=== PATIENT | male | born 1945 | race Caucasian/White ===

== ENCOUNTER 2016-10-08 11:11 | Emergency (ER) | payer MEDICARE, OTHER ==
[~2016-10-08 11:11] MED LIST: ASA5GR PO; ASAB PO; ASABAYER PO; BETAP120 PO; BETAPACE80 PO; CALTRA600D PO; CRESTOR20 MG PO; JANTOVEN3 MG PO; LIPITOR20 PO; LIPOTRIAD1 CAP PO; NITROSTAT0.4 MG SL; OS500+D PO; PRIN10 PO; SORINE80 MG PO; VITAMIN B PO; ZOCOR40 PO
[2016-10-08 11:15] LABS: BASOPHILS 0.2 %; BASOPHILS ABSOLUTE 0.01 10/3/uL (0.0-0.16); EOSINOPHILS 0.8 %; EOSINOPHILS ABSOLUTE 0.05 10/3/uL (0.0-0.53); ER CBC TAT 0 Hrs 05 Mins; HEMATOCRIT 39.1 % (40.0-51.0); HEMOGLOBIN 13.1 g/dL (13.6-17.8); IMMATURE GRANULOCYTES 0.2 %; IMMATURE GRANULOCYTES ABSOLUTE 0.01 10/3/uL (0.0-0.11); LYMPHOCYTES ABSOLUTE 0.81 10/3/uL (0.67-4.30); MANUAL DIFF NO %; MEAN CORPUS HGB CONC 33.5 g/dL (32.0-36.0); MEAN CORPUSCULAR HEMOGLOB 30.7 pg (26.0-34.0); MEAN CORPUSCULAR VOLUME 91.6 fL (80-100); MEAN PLATELET VOLUME 9.2 fL (9.2-13.0); MONOCYTES 5.8 %; MONOCYTES ABSOLUTE 0.36 10/3/uL (0.21-1.20); PLATELET COUNT 204 10/3/uL (150-400); RBC DISTRIBUTION WIDTH 13.7 % (12.0-16.0); RED CELL COUNT 4.27 10/6/uL (4.7-6.1); WHITE BLOOD CELLS 6.2 10/3/uL (4.5-10.5)
[2016-10-08 11:26] LABS: ALLENS TEST Pos; BE (BASE EXCESS) 1.1 MEQ/L (0 +/- 2.5); CARBOXYHEMOGLOBIN 1.1 % (0-3); DEVICE NC; HCO3 (ACTUAL BICARBONATE) 25.8 MEQ/L (23-27); HEMOBLOGIN CONTENT 13.2 G/DL (14-18); INSTRUMENT SERIAL # 8087; METHEMOGLOBIN 0.1 % (0-3); PCO2 (CO2 TENSION) 42 MMHG (35-45); PO2 (O2 TENSION) 92 MMHG (79-93); SAMPLE Arterial; pH 7.41 (7.37-7.43)
[2016-10-08 11:30] LABS: A/G RATIO 0.8 (0.7-1.9); ALBUMIN 3.3 G/DL (3.5-5.0); ALKALINE PHOSPHATASE 110 U/L (45-117); BUN (BLOOD UREA NITROGEN) 19 MG/DL (6-23); CALCIUM, SERUM 9.3 MG/DL (8.5-10.4); CHLORIDE, SERUM 107 MMOL/L (96-112); CO2 (CARBON DIOXIDE) 26 MMOL/L (24-34); CREATININE 0.87 MG/DL (0.70-1.30); GFR AFRICAN AMERICAN 99 ML/MIN (>=60); GFR NON AFRICAN AMERICAN 86 ML/MIN (>=60); GLOBULIN 3.9 G/DL (2.5-4.1); GLUCOSE, SERUM 112 MG/DL (60-99); POTASSIUM, SERUM 4.2 MMOL/L (3.5-5.3); SGOT(AST) 24 U/L (5-40); SGPT(ALT) 26 U/L (5-65); SODIUM, SERUM 142 MMOL/L (135-148); TOTAL BILIRUBIN 0.6 MG/DL (0-1.2); TOTAL PROTEIN 7.2 G/DL (6.0-8.5)
[2016-11-07] MEDS ORDERED: JANTOVEN4 MG PO (13:00)
== END 2016-10-08 14:34 | disposition home or self-care (01) ==
LOC: ER 11:11
PROVIDERS: Emergency Medicine
DX: J18.9 Pneumonia, unspecified organism (principal); I10 Essential (primary) hypertension; I25.2 Old myocardial infarction; I48.91 Unspecified atrial fibrillation; Z79.82 Long term (current) use of aspirin
CPT/HCPCS: 36600; 71010; 80053; 82805; 85025; 87040; 87070; 87205; 93005; 94640; 96365; 96366; 99285; J2930; J3370

== ENCOUNTER 2016-11-11 06:39 | Inpatient (IN) | payer OTHER ==
[2016-11-09 17:56] LABS: BASOPHILS 0.4 %; BASOPHILS ABSOLUTE 0.03 10/3/uL (0.0-0.16); EOSINOPHILS 3.3 %; EOSINOPHILS ABSOLUTE 0.22 10/3/uL (0.0-0.53); HEMOGLOBIN 10.8 g/dL (13.6-17.8); IMMATURE GRANULOCYTES 0.3 %; IMMATURE GRANULOCYTES ABSOLUTE 0.02 10/3/uL (0.0-0.11); LYMPHOCYTES 15.7 %; LYMPHOCYTES ABSOLUTE 1.05 10/3/uL (0.67-4.30); MEAN CORPUS HGB CONC 32.9 g/dL (32.0-36.0); MEAN CORPUSCULAR HEMOGLOB 30.8 pg (26.0-34.0); MEAN CORPUSCULAR VOLUME 93.4 fL (80-100); MEAN PLATELET VOLUME 9.1 fL (9.2-13.0); MONOCYTES 9.1 %; MONOCYTES ABSOLUTE 0.61 10/3/uL (0.21-1.20); NEUTROPHILS 71.2 %; NEUTROPHILS ABSOLUTE 4.76 10/3/uL (2.02-8.40); RBC DISTRIBUTION WIDTH 14.5 % (12.0-16.0); RED CELL COUNT 3.51 10/6/uL (4.7-6.1); WHITE BLOOD CELLS 6.7 10/3/uL (4.5-10.5)
[2016-11-09 18:04] LABS: INTERNATIONAL NORMAL RATI 1.7 UNITS (-)
[2016-11-09 18:08] LABS: PROTIME (NOT ORD) 19.5 SEC (12.0-14.5)
[2016-11-09 18:09] LABS: HEMATOCRIT 32.8 % (40.0-51.0); MANUAL DIFF NO %; PLATELET COUNT 313 10/3/uL (150-400)
[2016-11-09 18:11] LABS: A/G RATIO 0.9 (0.7-1.9); ALBUMIN 3.2 G/DL (3.5-5.0); ALKALINE PHOSPHATASE 119 U/L (45-117); BUN (BLOOD UREA NITROGEN) 22 MG/DL (6-23); CALCIUM, SERUM 9.3 MG/DL (8.5-10.4); CHLORIDE, SERUM 105 MMOL/L (96-112); CO2 (CARBON DIOXIDE) 29 MMOL/L (24-34); CREATININE 0.93 MG/DL (0.70-1.30); GFR AFRICAN AMERICAN 94 ML/MIN (>=60); GFR NON AFRICAN AMERICAN 81 ML/MIN (>=60); GLOBULIN 3.7 G/DL (2.5-4.1); GLUCOSE, SERUM 170 MG/DL (60-99); POTASSIUM, SERUM 4.1 MMOL/L (3.5-5.3); SGOT(AST) 14 U/L (5-40); SGPT(ALT) 17 U/L (5-65); SODIUM, SERUM 142 MMOL/L (135-148); TOTAL BILIRUBIN 0.4 MG/DL (0-1.2); TOTAL PROTEIN 6.9 G/DL (6.0-8.5)
[2016-11-09 18:38] LABS: ASCORBIC ACID (UR NOT ORDER) 40 (NEG); BILIRUBIN, URINE NEGATIVE (NEG); KETONE, URINE NEGATIVE (NEG); LEUKOCYTE ESTERASE(NOT OR TRACE (NEG); WBC (NOT ORDERED) (RFLEX) 9 (0-5)
--- NOTE | ~2016-11-11 | OP ---
Record Of Operation [facility] [address] [place]. [address] NAME: TANISHA MORRIS JR : 41 STATUS : ADM IN PAT#: [id number] AGE: 71 ADM/REG DATE : 11/11/16 MR#: [id number] REPORT SERV DATE: 11/11/16 DICTATED BY: ROD ADAME JR. DATE: 11/11/16 REPORT STATUS : Draft TRANSCRIBED BY: MODL DATE: 11/11/16 DATE OF PROCEDURE: 11/11/2016 PREOPERATIVE DIAGNOSES: Persistent infiltrate bilaterally with primary concentration in right middle lobe, anorexic, history of previous coronary bypass surgery, hypertension, sick sinus syndrome, status post placement of permanent pacemaker. POSTOPERATIVE DIAGNOSES: Persistent infiltrate bilaterally with primary concentration right middle lobe, anorexic, history of previous coronary bypass surgery, hypertension, sick sinus syndrome, status post placement of permanent pacemaker. Pathology and cultures pending. NAME OF OPERATION: Bronchoscopy with bronchioalveolar lavage right lung, right thoracoscopy with wedge excision right middle lobe x1 for diagnosis, wedge excision right lower lobe x1 for diagnosis, intercostal nerve block. SURGEON: Dr. Rod Adame. WHEEL TUNER: Luh Gonzalez. RESIDENT SURGEON: Dr. Jack Dave. ANESTHESIA: General endotracheal. FINDINGS: The patient was noted to have minimal mucous secretions in the lung tissue. He had a previous MRSA culture with persistent infiltrate in the right middle lobe. He had improvement clinically when he had the lavage previously. We re-lavaged the right lung, particularly the right middle lobe, looking for an etiology of his persistent cough and x- ray abnormalities. Upon exploration of his right chest, there was clearly an abnormality in the right middle lobe medially. This area was wedged out. Gross inspection demonstrated a lot of mucin within this area as well as some necrotizing granulomas. There was no evidence of cancer. Cultures were sent. An additional wedge incision was taken down the right lower lobe which was less involved. The remainder of his lung tissue looked fairly normal. This did not look like an interstitial lung disease type pattern. DETAILS OF OPERATION: After adequate general anesthesia, the patient was intubated. Bronchoscopy with bronchoalveolar lavage was performed. His anatomy was normal. The fluid was sent for cultures. A bronchial baldev was then placed. The patient was then positioned in the left lateral decubitus position and the right chest was prepped and draped in a routine sterile fashion. A small incision was made overlying the lower intercostal space. Through this single incision site, the above findings were noted. The tissue from the right middle lobe and right lower lobe were wedged out separately. Multiple firings of DANIA stapler with tissue reinforcement were utilized. An intercostal nerve block was performed. A 28-Luxembourgish chest tube was placed. The lung was reinflated. The trocar sites were closed with running Vicryl sutures. The skin was closed with running monofilament suture. A Dermabond dressing was applied and the procedure was terminated at this point. The patient tolerated the procedure well and taken back to recovery room in stable Record Of Operation [address] [address] NAME: ALEXANDRA,HOMER SOPHIA : 41 STATUS : ADM IN PAT#: [id number] AGE: 71 ADM/REG DATE : 11/11/16 MR#: [id number] REPORT SERV DATE: 11/11/16 DICTATED BY: ROD ADAME JR. DATE: 11/11/16 REPORT STATUS : Draft TRANSCRIBED BY: CALOS DATE: 11/11/16 condition. CANDIDO/CALOS Rod Adame Jr., M.D. / [id number] CC: Kanika English Jr., M.D.
[~2016-11-11 06:39] MED LIST changes: +JANTOVEN4 MG PO
[2016-11-11 07:49] LABS: INTERNATIONAL NORMAL RATI 1.5 UNITS (-); PROTIME (NOT ORD) 17.5 SEC (12.0-14.5)
[2016-11-12 06:24] LABS: BASOPHILS 0.1 %; BASOPHILS ABSOLUTE 0.02 10/3/uL (0.0-0.16); EOSINOPHILS 0.4 %; EOSINOPHILS ABSOLUTE 0.06 10/3/uL (0.0-0.53); HEMATOCRIT 33.8 % (40.0-51.0); HEMOGLOBIN 10.9 g/dL (13.6-17.8); IMMATURE GRANULOCYTES 0.4 %; IMMATURE GRANULOCYTES ABSOLUTE 0.06 10/3/uL (0.0-0.11); LYMPHOCYTES ABSOLUTE 1.06 10/3/uL (0.67-4.30); MEAN CORPUS HGB CONC 32.2 g/dL (32.0-36.0); MEAN CORPUSCULAR HEMOGLOB 30.3 pg (26.0-34.0); MEAN CORPUSCULAR VOLUME 93.9 fL (80-100); MEAN PLATELET VOLUME 9.3 fL (9.2-13.0); MONOCYTES 7.1 %; MONOCYTES ABSOLUTE 1.07 10/3/uL (0.21-1.20); NEUTROPHILS ABSOLUTE 12.85 10/3/uL (2.02-8.40); PLATELET COUNT 300 10/3/uL (150-400); RBC DISTRIBUTION WIDTH 14.1 % (12.0-16.0)
[2016-11-12 06:28] LABS: MANUAL DIFF NO %; WHITE BLOOD CELLS 15.1 10/3/uL (4.5-10.5)
[2016-11-12 06:38] LABS: CALCIUM, SERUM 9.2 MG/DL (8.5-10.4); CHLORIDE, SERUM 104 MMOL/L (96-112); CO2 (CARBON DIOXIDE) 29 MMOL/L (24-34); GFR AFRICAN AMERICAN 103 ML/MIN (>=60); GFR NON AFRICAN AMERICAN 89 ML/MIN (>=60); POTASSIUM, SERUM 3.9 MMOL/L (3.5-5.3); SODIUM, SERUM 140 MMOL/L (135-148)
[2016-11-12 06:42] LABS: BUN (BLOOD UREA NITROGEN) 13 MG/DL (6-23); GLUCOSE, SERUM 90 MG/DL (60-99)
[2016-11-12] MEDS ORDERED: NORCO1 TAB PO (10:22)
== END 2016-11-12 16:40 | disposition home or self-care (01) | DRG 167 ==
LOC: SDC/OF 06:39 → PACU 10:27 → 5NO 12:23
PROVIDERS: Thoracic Surgery (Cardiothoracic Vascular Surgery)
PROC: 0BJ08ZZ Inspection of Tracheobronchial Tree, Via Natural or Artificial Opening Endoscopic (ICD-10-PCS; 2016-11-11)
PROC: 3E0T3BZ Introduction of Anesthetic Agent into Peripheral Nerves and Plexi, Percutaneous Approach (ICD-10-PCS; 2016-11-11)
PROC: 0B938ZX Drainage of Right Main Bronchus, Via Natural or Artificial Opening Endoscopic, Diagnostic (ICD-10-PCS; 2016-11-11)
PROC: 0BBD4ZX Excision of Right Middle Lung Lobe, Percutaneous Endoscopic Approach, Diagnostic (ICD-10-PCS; principal; 2016-11-11 08:15)
PROC: 0BBF4ZX Excision of Right Lower Lung Lobe, Percutaneous Endoscopic Approach, Diagnostic (ICD-10-PCS; 2016-11-11 08:15)
DX: J84.9 Interstitial pulmonary disease, unspecified (principal); Z68.1 Body mass index [BMI] 19.9 or less, adult; I49.5 Sick sinus syndrome; R63.0 Anorexia; Z95.1 Presence of aortocoronary bypass graft; I10 Essential (primary) hypertension; Z95.0 Presence of cardiac pacemaker
CPT/HCPCS: 36415; 71020; 80048; 80053; 81001; 82962; 83036; 85025; 85610; 86850; 86900; 86901; 87015; 87070; 87075; 87077; 87102; 87116; 87186; 87205; 87641; 88307; 88312; 88331; 93005; 94640; A9270-GY; J0690; J2250; J2270; J2370; J2405; J2710; J2795; J3010

== ENCOUNTER 2016-11-23 13:52 | Inpatient (IN) | payer MEDICARE, OTHER ==
--- NOTE | ~2016-11-23 | CN ---
Consultation Report [facility] [address] [place]. [address] NAME: TANISHA FUENTES JR : 41 STATUS : ADM IN [facility]#: [id number] AGE: 71 ADM/REG DATE : 11/23/16 MR#: [id number] REPORT SERV DATE: 12/03/16 DICTATED BY: JASVIR TESFAYE DATE: 12/03/16 REPORT STATUS : Draft TRANSCRIBED BY: MODL DATE: 12/03/16 CONSULTATION DATE OF CONSULTATION: REFERRING PHYSICIAN: Dr. Rivera. REASON FOR CONSULTATION: Asked to assist with any question of hypercoagulable workup. HISTORY: Mr. Fuentes is a very pleasant 71-year-old with multiple medical problems, status post recent lung biopsy complicated by a supratherapeutic INR/infection/hemothorax. The hemothorax was treated with chest tube which was removed two days ago. He has been doing well with this, but began developing swelling of the left arm yesterday. An ultrasound was performed which revealed a new DVT in the left subclavian. He was restarted on IV heparin. He denies any prior clots or strokes. 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 Denies any family history of clots. PAST MEDICAL HISTORY: Significant for paroxysmal AFib, he has had a pacemaker placed. He had a PTCA in 1990 and was told he had one blocked artery. He has had multiple kidney stones. His last episode of kidney stones was three weeks ago. He states he is up to date on his colonoscopy. SOCIAL HISTORY: He is . 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 Denies any tobacco or alcohol. FAMILY HISTORY: He denies any family history of clot or early stroke. REVIEW OF SYSTEMS: A 14-point review of systems was performed and negative except as per HPI. PHYSICAL EXAMINATION: VITAL SIGNS: Temp 97.8, pulse of 55, respiratory rate 18, sat 97% on room air, blood pressure is 122/56. GENERAL: He is a well-developed, well-nourished, thin male, in no acute distress. LUNGS: Clear to auscultation. HEART: Bradycardic without murmur. He has a small ulceration with reddening of the skin. ABDOMEN: Soft, nontender, nondistended. EXTREMITIES: He has no clubbing, cyanosis, or edema. LABORATORY DATA: His blood work reveals white count of 12.2, hemoglobin 8.8, platelet count of 236. His BUN is 25, creatinine 1.28. Most recent INR was 1. ASSESSMENT AND PLAN: The patient with a history of long-term anticoagulation complicated by hemothorax after a biopsy, now with new upper extremity deep venous thrombosis while off his Consultation Report [facility] [address] [place]. [address] NAME: TANISHA FUENTES JR : 43 STATUS : ADM IN [facility]#: [id number] AGE: 71 ADM/REG DATE : 11/23/16 MR#: [id number] REPORT SERV DATE: 12/03/16 DICTATED BY: JASVIR TESFAYE DATE: 12/03/16 REPORT STATUS : Draft TRANSCRIBED BY: CALOS DATE: 12/03/16 anticoagulation. 1. I agree with IV heparin with transition back to Coumadin. I think Coumadin is his best choice as it is reversible if he were to have recurrent bleed and it can be used if he has any difficulty with his kidney function. I will resume back at his home dose of 3.5 mg daily. He has had this monitored at the [place]. 2. Hypercoagulable. I suspect this probably occurred in an acute illness setting. The results of a hypercoagulable workup would not change his need for long-term anticoagulation, but may help better to determine if he needs Lovenox bridge when he comes off his Coumadin for procedures. We will follow up with you as to the results. Thank you very much for the consultation. ZANDER/CALOS Jasvir Tesfaye M.D. / [id number] CC: Dave Viera MD
--- NOTE | ~2016-11-23 | IDS ---
Interim Discharge Summary [facility] [address] [place]. [address] NAME: TANISHA MORRIS JR : 41 STATUS : ADM IN [facility]#: [id number] AGE: 71 ADM/REG DATE : 11/23/16 MR#: [id number] REPORT SERV DATE: 12/05/16 DICTATED BY: YUE RIVERA DATE: 12/05/16 REPORT STATUS : Draft TRANSCRIBED BY: MODL DATE: 12/05/16 ADMISSION DATE: 11/23/2016 DISCHARGE DATE: PROBLEM LIST: 1. Shock with right hemothorax with empyema. 2. Right hemothorax with acute blood loss anemia. 3. Right empyema with MSSA. The patient has been followed by Dr. Lamar. Currently, he is on Ancef treatment. 4. Chronic Coumadin use at home prior to this admission, and came with an INR of 7.6. It was on hold while he was getting the treatment for the right hemothorax, and it was resumed after he was found to have left subclavian DVT. 5. Left subclavian DVT. The patient is back on Coumadin. 6. Chronic bronchiectasis from the biopsy result from the previous admission. 7. New right-sided apical small pneumothorax on the chest x-ray exam on 12/04/2016, the patient needs a followup chest x-ray to make sure that the pneumothorax is resolving before the discharge. CONSULTANTS: 1. Dr. Lamar. 2. Dr. Mars in Critical Care Management. 3. Renal Associate. 4. Dr. Tesfaye, template clerk for clot. HISTORY OF PRESENT ILLNESS: This is a 71-year-old male patient, who had a recent lung biopsy and was discharged. Came back to the hospital with weakness and dizziness, was found to have acute blood loss anemia. Please see the dictated H and P. HOSPITAL COURSE: He was admitted to the hospital initially with the weakness postprocedure, and he was found to be in shock, and he was admitted to the ICU. He was found to be positive with acute blood loss anemia. Had a chest tube insertion which showed bloody effusion. He was on supportive care in the ICU with the transfusion, and he was also having an MSSA infection from the pleural fluid. He was on adequate antibiotic management by Dr. Lamar, and he was tolerating all supportive care with his shock and bleeding. At that time, he presented with a supratherapeutic Coumadin level. Coumadin was on hold on initial admission. After he was treated and stabilized from the ICU Care, he came out of the ICU. He landed on [address]. At that time, his Coumadin was on hold. The new finding was, his left subclavian DVT was diagnosed after he came out of the ICU. Seen by Dr. Isabel Tesfaye regarding his anticoagulation, recommended the Coumadin to be restarted. He has been tolerating all these treatments. He has been stable. Had a followup x-ray which showed right apical pneumothorax, which was found on 12/04/2016. Meanwhile, his disposition is decided to be Interim Discharge Summary [address] [address] NAME: TANISHA MORRIS JR : 41 STATUS : ADM IN [facility]#: [id number] AGE: 71 ADM/REG DATE : 11/23/16 MR#: [id number] REPORT SERV DATE: 12/05/16 DICTATED BY: YUE RIVERA DATE: 12/05/16 REPORT STATUS : Draft TRANSCRIBED BY: CALOS DATE: 12/05/16 refer to [facility]. financial compliance manager is in process for approving his rehab stay. We will keep this patient for followup for apical pneumothorax before the discharge. Overall, he had a stable hospitalization. We will need to check x-ray for pneumothorax and finalizing discharge plan to [facility]. GUERLINE/MODTrinity Yue Rivera M.D. / [id number] CC: Dave Viera MD
--- NOTE | ~2016-11-23 | HP ---
History And Physical [place] [id number] [facility] [place]. [address] NAME: TANISHA MORRIS JR : 43 STATUS : ADM IN [facility]#: [id number] AGE: 71 ADM/REG DATE : 11/23/16 MR#: [id number] REPORT SERV DATE: 11/23/16 DICTATED BY: DARCY PHOENIX DATE: 11/23/16 REPORT STATUS : Draft TRANSCRIBED BY: MODL DATE: 11/23/16 DATE OF ADMISSION: 11/23/2016 IDENTIFYING DATA: A 71-year-old white male whose PCP is Dr. Nitesh Maurer; Pulmonary in [place] with Dr. Ricci; Pulmonary locally Dr. Dodge; Cardiothoracic Surgery, Dr. Adame. CHIEF COMPLAINT: Weakness and dizziness. HISTORY OF PRESENT ILLNESS: This patient's history of present illness is obtained by talking directly with the patient and his at the bedside as well as talking to the ER provider including the nurse and the ER physician and reviewing [employer] and [employer]. The patient has had about two years of cough. He has also had progressive weight loss over the last year of at least 45 pounds. He has had several pneumonias diagnosed and a persistent infiltrate in the mid lung panchal, right worse than left. Because of this, Dr. Adame did bronchoscopy with bronchoalveolar lavage as well as wedge biopsies of right middle lobe and right lower lobe and thoracoscopy on the right side on 11/11/2016. He went home the next day. The pathology showed marked bronchiectasis with some gram-positive cocci. Cultures grew out small amount of methicillin-sensitive Staph aureus and some bacillus species, negative for AFB. There were some rare granuloma and they had fungal hyphae in them, questionable Aspergillus. The patient was on Bactrim at home. Since going home, he has just progressively been feeling weaker and weaker. He feels like he is going to pass out, it is much worse today, so he came to the ER where his supine blood pressure 104/71, but standing or even sitting, he was about to pass out. The chest x-ray on the patient today showed subcutaneous emphysema, a right pleural effusion that had developed a right basilar consolidation. We were asked to see him in admission process. When I walked in the room, he was pale. He was lethargic. He was cold. He said he felt like he was going to pass out. His head was up at about 40 degrees angle. I put it down nearly flat. He stated he felt short of breath. I raised it just slightly and got a blood pressure manually with the nurse in the room of 74/40. We have started IV fluids again. The ER had already given him 2 liters, 1 liter of saline, 1 liter of lactated Ringer's as well as antibiotics. They did Hemoccult his stool, it was yellow in color, but guaiac positive. The patient's states that last week his INR was up to 8. His Jantoven was held. Repeat was down to 6, and then today, it was reportedly back to the normal range, but he had not restarted his Jantoven. He admits he had some dark stool. REVIEW OF SYSTEMS: On review of systems, he has had cough for about two years ago. He has right side postop chest pain, it was not prior to surgery. He has had worsening shortness of breath. He had nausea and threw up once this morning. He states there was no red or black color in it. He has one time per night nocturia and he stated he has lost 45 pounds in the last year. No fever, sore throat, sputum production, abdominal pain, diarrhea, rectal bleeding, dysuria, History And Physical [address] [address] NAME: TANISHA MORRIS JR : 41 STATUS : ADM IN [facility]#: [id number] AGE: 71 ADM/REG DATE : 11/23/16 MR#: [id number] REPORT SERV DATE: 11/23/16 DICTATED BY: DARCY PHOENIX DATE: 11/23/16 REPORT STATUS : Draft TRANSCRIBED BY: MODTrinity DATE: 11/23/16 urinary hesitancy, peripheral edema, rash, or tick bites. ALLERGIES: HE HAS NO KNOWN DRUG ALLERGIES, BUT HE STATES WHEN HE WAS ON ZYVOX, HE ENDED UP WITH KIDNEY STONES. PAST MEDICAL HISTORY: He has had no history of diabetes, asthma, COPD, myocardial infarction, congestive heart failure, stroke, seizure, peptic ulcer or liver disease, chronic kidney disease, thyroid disease, cancer or sleep apnea. He has a history of paroxysmal atrial fibrillation. He has had previous radiofrequency ablation in 2008. He also has a history in February 2016 of a short run of nonsustained ventricular tachycardia. He is on sotalol. He has previous PTCA of the right coronary artery in 1990. He has a history of hypertension. He has a history of a descending aortic dimension of 4.1 cm. He has had kidney stones when he was on Zyvox. HOME MEDICATIONS: Aspirin 81 mg daily; [place]anger 10/325 a half to a whole p.o. b.i.d. p.r.n. pain; nitroglycerin 0.4 mg sublingual p.r.n. chest pain; Betapace 120 mg b.i.d., Bactrim DS, he is supposed to take for 30 days on a b.i.d. basis, started on 11/12/2016; Jantoven, which was 3.5 mg at bedtime, but he has held since last Monday because of his elevated INR. PAST SURGICAL HISTORY: He had the above described bronchoalveolar lavage with bronchoscopy, right middle lobe and right lower lobe wedge resection, kidney stone procedure, and cholecystectomy. SOCIAL HISTORY: He is . 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 He has no tobacco or alcohol intake history. No assistive device used. FAMILY HISTORY: Mother with heart disease. Dad, he does not know the health problems of. Siblings, brother reportedly with heart disease, hypertension, and congestive heart failure. DIAGNOSTIC DATA: Chest x-ray shows considerable subcutaneous air in the right chest. He has a right pleural effusion, has a right basilar infiltrate, has a dual-lead pacemaker in per my interpretation. EKG done today at 1212 hours reveals atrial paced rhythm, some nonspecific T-wave flattening diffusely per my interpretation. Procalcitonin today is 0.07. Sodium 136, potassium 4.6, chloride 104, CO2 is 28, BUN 28, creatinine 1.2, and by comparison, his creatinine was 0.8 on 11/12/2016. Glucose is 118 and [id number] with an albumin of 3.1, so that suggests the possibility that he might have an elevated serum calcium. Rest of his CMP was unremarkable today. His troponin less than 0.02. His white count is 13.5, platelets are 388,000, hemoglobin is 11.0, and by comparison hemoglobin was 10.9 on 11/12/2016. His pro-time 25.7, INR 2.4, and PTT is 37.1. Lactic acid is 2.0. Urinalysis today as a clean catch, specific gravity 1.028, protein 30, trace ketones, otherwise, unremarkable findings. PHYSICAL EXAMINATION: VITAL SIGNS: Temp 98, pulse 95, respirations 18, blood pressure 74/40 initially when I saw him, and O2 saturation 96% on 4 liters. GENERAL: A well-developed male, who appears quite pale and weak. History And Physical [address] [place]. [address] NAME: TANISHA MORRIS JR : 41 STATUS : ADM IN [facility]#: [id number] AGE: 71 ADM/REG DATE : 11/23/16 MR#: [id number] REPORT SERV DATE: 11/23/16 DICTATED BY: DARCY PHOENIX DATE: 11/23/16 REPORT STATUS : Draft TRANSCRIBED BY: CALOS DATE: 11/23/16 HEENT: Head is atraumatic. Pupils are equal, round, and reactive to light. Extraocular motions are intact. No scleral icterus noted. Ear canals and TMs unremarkable. Normal hearing. Nose, noninflamed externally. Septum midline. Nares patent. Mouth is moist. Good gag. No redness of the throat or gums or lips. NECK: Supple. No lymph node or thyroid enlargement. The jugular veins are flat even is supine position. No bruits noted. LUNGS: He has crackles in both bases, most in the right lung base. His chest wall shows considerable subcutaneous air, right chest more than left chest. Normal respiratory effort. HEART: Regular rate and rhythm without murmur, gallop, click, or rub. ABDOMEN: Bowel sounds positive. Soft, nondistended, and nontender. No masses. No organomegaly. EXTREMITIES: Thin, warm, and good pulses. No clubbing. No cyanosis. No edema. No actively inflamed skin or joints. NEUROLOGIC: He is very weak. He is arousable to verbal and tactile stimulation. He is oriented x3. His motor strength is 1/5 in all four extremities. No Babinski. No clonus noted. Stool described by the ER staff is yellow, guaiac positive. ASSESSMENT: 1. Shock, unclear etiology. Possibilities include gastrointestinal bleed with his recent report of dark stool and the ER found guaiac positive and he has had a high INR. Other possibility would be sepsis related to healthcare associated pneumonia. Also have to consider the possibility of this ongoing problem with his right middle lobe and a questionable Aspergillus. Other possibility for his shock would be adrenal insufficiency, this could also play into his weight loss. 2. Acute kidney injury given his sudden rise of creatinine. 3. Bronchiectasis that was quite marked on his recent pathology. 4. Near-syncope due to problem shock. 5. See past medical history. PLAN: 1. The patient is being admitted to the hospital. 2. In the meantime, we have given him IV fluids rapidly. We will check his serum cortisol. If it is low, we will supplement him, blood cultures are growing. He has already got Rocephin and azithromycin. I am going to broaden that to cefepime, vancomycin, and tobramycin. I will ask ID to see him. I have spoken with Critical Care, Dr. Viera, if his pressures do not improve dramatically in the near time, he will go to the ICU. 3. Follow up hemoglobin closely. 4. We are holding his Jantoven. 5. updated at the bedside at this time. RSFara/CALOS History And Physical [address] [address] NAME: TANISHA MORRIS JR : 41 STATUS : ADM IN [facility]#: [id number] AGE: 71 ADM/REG DATE : 11/23/16 MR#: [id number] REPORT SERV DATE: 11/23/16 DICTATED BY: DARCY PHOENIX DATE: 11/23/16 REPORT STATUS : Draft TRANSCRIBED BY: MODL DATE: 11/23/16 Darcy Phoenix M.D. / [id number] CC: MD Nitesh Davidson M.D. James Headrick Jr., M.D. Pamela Sud, M.D.
--- NOTE | ~2016-11-23 | CN ---
Consultation Report [facility] [address] [place]. [address] NAME: TANISHA FUENTES JR : 41 STATUS : ADM IN [facility]#: [id number] AGE: 71 ADM/REG DATE : 11/23/16 MR#: [id number] REPORT SERV DATE: 11/25/16 DICTATED BY: LEE ANN RIOS DATE: 11/25/16 REPORT STATUS : Draft TRANSCRIBED BY: MODL DATE: 11/25/16 NEPHROLOGY CONSULTATION DATE OF CONSULTATION: 11/25/2016 INDICATION FOR CONSULTATION: Acute kidney injury. HISTORY OF PRESENT ILLNESS: Mr. Fuentes is a 71-year-old male, who presented to the hospital due to weakness and near-syncope. He was seen for acute kidney injury and hyperkalemia. History is significant for recent open lung biopsy to evaluate chronic right pulmonary infiltrate, which demonstrated bronchiectasis, grew out MSSA, and pathology revealed fungal hyphae on staining and tissue path reveal granulomas. He was initiated on Bactrim for coverage. He had been on warfarin and apparently the level justin to 7.4. Warfarin was held and the level corrected to 2.4 at the time of admission. His creatinine has increased from 1.2 to 3.35 since admission. His systolic blood pressure was in the 70s on presentation and he received over 4 L of IV fluids and required 2 units of blood as packed red blood cells. His right chest was noted to have an increasing effusion on chest x-ray and CT scan and he underwent chest tube placement with removal of 1600 mL of bloody effusion. Besides the Bactrim, he did receive 1 dose of tobramycin at the time of presentation, but is currently on no nephrotoxic therapy. PAST MEDICAL HISTORY: Nephrolithiasis, bronchiectasis on pulmonary biopsy with rare fungal hyphae, granulomas, and MSSA cultured and on tissues path at time of biopsy, remote cholecystectomy, paroxysmal atrial fibrillation, status post ablation, coronary artery disease, status post PCI, history of hypertension, history of hyperlipidemia. SOCIAL HISTORY: The patient is . 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 No use of tobacco, alcohol, or illicit drugs. PAST SURGICAL HISTORY: Lung biopsy intervention for kidney stones and cholecystectomy. FAMILY HISTORY: Mother with hypertension and heart disease. Brother with hypertension, heart disease, and congestive heart failure. No end-stage renal disease. No diabetes. ALLERGIES: THE PATIENT STATES, HE DEVELOPED KIDNEY STONES ON ZYVOX. MEDICATIONS: At admission, aspirin, hydrocodone, nitroglycerin, Betapace, Bactrim DS, Jantoven. REVIEW OF SYSTEMS: HEENT: Change in visual acuity. No epistaxis. No otic infection. No pharyngitis. PULMONARY: No shortness of breath. No hemoptysis. CARDIAC: Recent weakness, near-syncope. Denies palpitations, chest pain. No recent lower extremity edema. Consultation Report [place] [id number] [facility] [place]. [address] NAME: TANISHA FUENTES JR : 41 STATUS : ADM IN [facility]#: [id number] AGE: 71 ADM/REG DATE : 11/23/16 MR#: [id number] REPORT SERV DATE: 11/25/16 DICTATED BY: LEE ANN RIOS DATE: 11/25/16 REPORT STATUS : Draft TRANSCRIBED BY: CALOS DATE: 11/25/16 GI: Some intermittent nausea. Appetite is decreased. No vomiting. No melena. : No gross hematuria, dysuria. Urine output has dropped since admission. MUSCULOSKELETAL: Denies arthralgias and joint tenderness. DERMIS: No rash. No itching. ENDOCRINE: Negative. The remainder of the 12-point review of systems negative. PHYSICAL EXAMINATION: GENERAL: Pleasant thin white male, alert, cooperative. VITAL SIGNS: Blood pressure 105/55, temp 97.5, pulse 72, respiratory rate 14. HEENT: Eyes, no scleral icterus. Pupils equal, reactive to light. Extraocular movement intact. Nares patent. No discharge. Throat, no injection. Mucous membranes moist. NECK: No thyromegaly, masses, bruits. CHEST/LUNGS: Decreased breath sounds, right base posteriorly. Crackles right greater than left base. No wheezing. CARDIAC: Irregular rhythm. Questionable 1/6 systolic ejection murmur. No gallop or rub. ABDOMEN: Supple. Normoactive bowel sounds. No tenderness. No hepatosplenomegaly. /RECTAL: Not performed. EXTREMITIES: No edema. No calf tenderness. DERMIS: No rash. No skin lesions. NEUROLOGIC: Cranial nerves intact. No lateralizing weakness. MUSCULOSKELETAL: No deformity. No joint tenderness or effusions. IMPRESSION: 1. Acute kidney injury likely secondary to ischemic acute tubular necrosis. Doubt significant contribution by one dose of tobramycin or effects of Bactrim. 2. History of nephrolithiasis. 3. Weight loss attributed to pulmonary infection. 4. Bronchiectasis, on pulmonary biopsy with documentation of granulomas on tissue biopsy, fungal hyphae on stains, and MSSA in cultures at time of bronchial lavage. 5. Remote cholecystectomy. 6. Acute blood loss anemia, status post transfusion. 7. Shock, likely hypovolemic. 8. Status post drainage of right pleural effusion with bloody effluent in association with recent INR elevation. 9. Paroxysmal atrial fibrillation with history of ablation and chronic Coumadin therapy. 10.Coronary artery disease, status post remote PCI. 11.History of hypertension. 12.Hyperlipidemia. PLAN: 1. Labs. 2. Ultrasound of kidney and bladder. 3. Diuretic challenge. Consultation Report [address] [place]. [address] NAME: TANISHA FUENETS JR : 41 STATUS : ADM IN [facility]#: [id number] AGE: 71 ADM/REG DATE : 11/23/16 MR#: [id number] REPORT SERV DATE: 11/25/16 DICTATED BY: LEE ANN RIOS DATE: 11/25/16 REPORT STATUS : Draft TRANSCRIBED BY: CALOS DATE: 11/25/16 4. We will monitor for renal replacement therapy. CG/CALOS Lee Ann Rios M.D. / [id number] CC: MD Nitesh Guerrero M.D.
--- NOTE | ~2016-11-23 | OP ---
Record Of Operation [facility] [address] [place]. [address] NAME: TANISHA MORRIS JR : 41 STATUS : ADM IN [facility]#: [id number] AGE: 71 ADM/REG DATE : 11/23/16 MR#: [id number] REPORT SERV DATE: 11/25/16 DICTATED BY: DIPESH MARS DATE: 11/25/16 REPORT STATUS : Draft TRANSCRIBED BY: MODL DATE: 11/25/16 DATE OF PROCEDURE: 11/25/2016 PROCEDURE: Chest tube insertion, right side. INDICATION FOR PROCEDURE: The patient has acute blood loss anemia, shock, worsening effusion on the right side which is noted sonographically. Concern for a hemothorax. PREOPERATIVE DIAGNOSIS: Hemothorax. POSTOPERATIVE DIAGNOSIS: Hemothorax. PERFORMING OPERATORS: Dipesh Mars MD and rDu Servin PA-C PROCEDURE NOTE: The patient was in the intensive care unit, he was placed in proper position with a wedge. Using ultrasound imaging, we were able to identify the site and marked this properly. We then sterilized the area and prepped him. We then used lidocaine to numb up the insertion site and placed a finder needle with lidocaine. Then, we were able to enter the pleural space with the return of brown old blood. We were able to place a guidewire in that site. Using dilation, using a Thal-Quick setup, we were able to place a 14-Polish chest tube with return of sanguinous pleural fluid which had a hemoglobin of 5.9. Of note, we were able to drain 1.2 L of blood which was collected in the aquarium. The patient had improvement in breathing status, oxygenation status. OUTCOME: Please keep chest tube to -20 suction and check a chest x-ray. HFQ/MODL Dipesh Mars MD / [id number] CC: MD Nitesh Guerrero M.D.
--- NOTE | ~2016-11-23 | DS ---
Discharge Summary [facility] [address] [place]. [address] NAME: TANISHA MORRIS JR : 41 STATUS : DIS IN PAT#: [id number] AGE: 71 ADM/REG DATE : 11/23/16 MR#: [id number] REPORT SERV DATE: 12/07/16 DICTATED BY: JR. HEBERT WILLIAM JOHN DATE: 12/06/16 REPORT STATUS : Draft TRANSCRIBED BY: MODL DATE: 12/06/16 ADMISSION DATE: 11/23/2016 DISCHARGE DATE: 12/06/2016 DISCHARGE DIAGNOSES: Include, 1. Right hemothorax with shock. 2. Acute blood loss anemia secondary to hemothorax. 3. Right methicillin sensitive Staph aureus empyema. 4. Left subclavian deep vein thrombosis. 5. Chronic bronchiectasis. 6. Small right apical pneumothorax which has resolved. OPERATIONS, PROCEDURES, AND TREATMENTS: Include, 1. Chest x-ray on 11/23/2016, which showed status post removal of right chest tube without pneumothorax. There was increased spontaneous emphysema and developed a right pleural effusion, right basilar consolidation. 2. Chest x-ray done 11/24/2016 showed substantially increased volume of right pleural effusion with increased atelectasis of the right lung. 3. CT of the chest done 11/24/2016 which showed large right pleural effusion, possibly representing hemothorax given the patient's clinical presentation. There was densely consolidated right lower lobe which is heterogeneous in appearance. Finding may be due to intrapulmonary hemorrhage, pneumonia, or surrounding hematoma. There was postsurgical changes from previous wedge resection involving the right lower lobe and right middle lobe. There was soft tissue gas throughout the right chest wall extending into the upper abdomen. There was continued extensive tree-in-bud opacities in both lungs likely infectious/inflammatory. There was new discrete nodular opacity in the right central lung measuring 8 x 12 mm and slightly more dense in appearance. There is a discrete nodule in the posterior upper lobe measuring 3 x [address] recommended. 4. Mild edema with peripancreatic fat planes. 5. PICC line placement, done 11/24/2016. 6. Chest x-ray, done 11/25/2016, which showed chest tube with decrease in the amount of pleural effusion residual opacity. 7. Renal ultrasound, done 11/25/2016, was normal. 8. Multiple followup chest x-rays on 12/02/2016, there are bilateral upper lobe infiltrates which had resolved, right lung base atelectasis consolidation was mildly improved. 9. Venous Doppler ultrasound of the left upper extremity, done 12/02/2016, showed deep vein thrombus involving the left subclavian and left axillary vein as well as superficial venous thrombosis involving proximal left basilic and distal left cephalic veins. 10.PA and lateral chest x-ray, done 12/04/2016, which showed small right pleural effusion with tiny right apical pneumothorax. 11.Followup chest x-rays on 12/05/2016 showed decrease in the size of the pneumothorax and on 12/06/2016 showed resolution of the pneumothorax. CONSULTING PHYSICIAN: Include, Dr. Severo Lamar of Infectious Disease, Dr. Jordan Birmingham of Discharge Summary [address] [address] NAME: TANISHA MORRIS JR : 41 STATUS : DIS IN PAT#: [id number] AGE: 71 ADM/REG DATE : 11/23/16 MR#: [id number] REPORT SERV DATE: 12/07/16 DICTATED BY: JR. HEBERT WILLIAM JOHN DATE: 12/06/16 REPORT STATUS : Draft TRANSCRIBED BY: CALOS DATE: 12/06/16 Nephrology, Dr. Mars of Pulmonology, Dr. Isabel Tesfaye of Hematology/Oncology. DISCHARGE MEDICATIONS: Include, 1. Lactulose 30 mL orally twice a day. 2. Milk of magnesia 30 mL orally daily. 3. Protonix 40 mg orally twice a day. 4. Sotalol 120 mg orally twice a day. 5. Coumadin holding on the day of discharge, then resuming likely at 2 mg when INR is again in the therapeutic range. 6. Pulmicort inhaled daily. 7. Tylenol 650 q.4 h. p.r.n. 8. [place] 5/325 one two tablets every six hours as needed. 9. Nitroglycerin as needed. 10.Zofran 4 mg as needed. HOSPITAL COURSE: The patient was a 71-year-old male, presented to the emergency room 11/23/2016 with weakness and dizziness. The patient had had a two-year history of cough with progressive weight loss of at least 45 pounds and pneumonias diagnosed as well as persistent infiltrate of the right lung panchal, right worse than left. Dr. Adame did a bronchoscopy with bronchoalveolar lavage as well as wedge biopsies of the right middle lobe and right lower lobe on 11/11/2016, he went home the next day. Pathology showed bronchiectasia with some mild gram-positive cocci. Cultures grew MSSA. Since going home, the patient has had progressive weakness and came back to the emergency room where he was relatively hypotensive and presyncopal with orthostatic symptoms. His blood pressure was as low as 74/40. On an initial exam, his temperature was 98, heart rate 95, respiratory rate 18, blood pressure 74/40 which improved with fluid hydration. Exam was remarkable for crackles in both lung bases, more on the right than the left. The patient was admitted to [facility] for shock. He was given IV fluid bolus. The patient was subsequently admitted to the intensive care unit for shock and hypotension and was seen by Infectious Disease and found to have a right hemothorax with empyema. The patient was found to be anemic. He was seen by Infectious Disease as well as Nephrology and eventually by Thoracic Surgery and was placed on vancomycin and meropenem. The patient had a chest tube placed by Dr. Adame which was discontinued on 11/28/2016. Chest tube showed bloody effusion with evidence of empyema. Eventually, this was felt to be methicillin sensitive Staph aureus. Infectious Disease changing antibiotic to Kefzol for which the patient will complete his dosing today. His PICC line will be removed in that regard. The patient developed a small pneumothorax which was observed and resolve spontaneously. The patient also had a left subclavian deep vein thrombosis. He will be on Coumadin for this. He was given a single dose of 5 mg of Coumadin. His INR justin from 1.2 to 2.3 with that single dose, he was given 1 mg in addition to that, and by the day of discharge, his INR was 3.1. We would recommend holding his Coumadin today and checking an INR tomorrow. He likely will need somewhere between 2 mg and 3 mg Coumadin chronically. The remainder of the patient's health problems remained stable. He did require 2 units of Discharge Summary [place] [id number] [facility] [place]. [address] NAME: TANISHA MORRIS JR : 41 STATUS : DIS IN PAT#: [id number] AGE: 71 ADM/REG DATE : 11/23/16 MR#: [id number] REPORT SERV DATE: 12/07/16 DICTATED BY: JR. HEBERT WILLIAM JOHN DATE: 12/06/16 REPORT STATUS : Draft TRANSCRIBED BY: CALOS DATE: 12/06/16 packed red blood cells transfusion. The patient be discharged to [facility] today 12/06/2016. For discharge exam and laboratory, please see daily progress note. DIET: Will be regular. ACTIVITY: As tolerated. FOLLOWUP ISSUES: Carefully dosed Coumadin. Again, the patient had an initial INR of 1.2. He was given 5 mg of Coumadin x1. The following day, his INR was 2.3. He got 1 mg of Coumadin that night, and on the day of discharge, his INR was 3.1. Recommend holding Coumadin tonight, 12/06/2016 by drawing an INR on 12/07/2016. This discharge took 40 minutes for the patient encounter, coordination of care, and documentation. WDilshadF/CALOS Jeffry Hebert Jr, MD / [id number] CC: Jeffry Hebert Jr, MD Dennis Thompson, M.D.
--- NOTE | ~2016-11-23 | CN ---
Consultation Report [facility] [address] [place]. [address] NAME: TANISHA MORRIS JR : 41 STATUS : ADM IN [facility]#: [id number] AGE: 71 ADM/REG DATE : 11/23/16 MR#: [id number] REPORT SERV DATE: 11/24/16 DICTATED BY: JENNIFFER LAMAR DATE: 11/24/16 REPORT STATUS : Draft TRANSCRIBED BY: MODL DATE: 11/24/16 INFECTIOUS DISEASE CONSULTATION DATE OF CONSULTATION: 11/24/2016 REASON FOR CONSULTATION: Possible sepsis. HISTORY OF PRESENT ILLNESS: This is a 71-year-old man with a history of bronchiectasis, atrial fibrillation, ventricular tachycardia, coronary artery disease, and hypertension. On 11/11/2016, he was taken to the operating room by Dr. Adame because of a history of persistent infiltrates along with anorexia of unclear etiology. On that day, he underwent bronchoscopy with bronchoalveolar lavage and right thoracoscopic wedge excision of right middle lobe and right lower lobe specimens for diagnosis along with intercostal nerve block. He was discharged the following day. Pathology from this procedure showed marked bronchiectasis with inflammation and rare areas of granulomas. The GMS stains showed some fungal hyphae within the rare granulomata. AFB stains were negative. There was also occasional clusters of gram-positive cocci seen within the ectatic bronchi and operative cultures from lavage and tissue specimens all grew MSSA. Fungal cultures are negative today. The patient developed progressive weakness after going home, at times apparently felt like he is going to pass out. This led him to come to the emergency department at [facility] early yesterday afternoon. He also had some complaints of nausea. Initially, his blood pressure was 104/71, pulse of 94, but his blood pressure dropped down to as low as 89/53. His initial laboratory evaluation showed a hemoglobin of 11, white blood cell count of 13.5, and procalcitonin of 0.07. Of note, on 11/18/2016, his INR had been 7.4 and his Coumadin was held and according to Dr. Phoenix, repeat INR was down to 6. On admission last night in the ER, his INR was 2.4. The patient had a chest x-ray done, which showed a small right pleural effusion and right basilar atelectasis versus small infiltrate. Blood pressure according to Dr. Phoenix's note, it got as low as 74/40. He underwent vigorous fluid resuscitation with about 4 L of fluid with improvement in his blood pressure. He was started on broad-spectrum antibiotics with vancomycin, cefepime, and tobramycin for the possibility of pneumonia after blood cultures were obtained. He was noted to have a heme- positive stool. Followup lab work showed that his hemoglobin dropped to 7.2 and then to 6.8. He has been transfused one unit and is getting a second unit now. His white blood cell count went up to 18.2 thousand this morning. He has had no fevers since admission. His creatinine is up to 1.59. Finally, repeat chest x-ray this morning shows a marked increase in right pleural effusion and possible atelectasis. The patient has not required pressors. His oxygenation has been stable on 2 L. His chief complaint is right-sided chest pain. He does note an occasional cough. Denies any hemoptysis. PAST MEDICAL HISTORY: As outlined above. He also has history of kidney stones which he attributes to Zyvox. The patient also has a pacemaker. ALLERGIES: NO KNOWN DRUG ALLERGIES. Consultation Report [address] [address] NAME: TANISHA MORRIS SOPHIA DODSON : 41 STATUS : ADM IN [facility]#: [id number] AGE: 71 ADM/REG DATE : 11/23/16 MR#: [id number] REPORT SERV DATE: 11/24/16 DICTATED BY: JENNIFFER LAMAR DATE: 11/24/16 REPORT STATUS : Draft TRANSCRIBED BY: CALOS DATE: 11/24/16 PRESENT MEDICATIONS: Include the antibiotics as mentioned along with Betapace. He was on Coumadin as an outpatient as mentioned above along with aspirin, p.r.n. hydrocodone, Bactrim which he had started on 11/12/2016. SOCIAL HISTORY: He lives with his . Nonsmoker. Nondrinker. FAMILY HISTORY: Notable for mother with heart disease. REVIEW OF SYSTEMS: Otherwise negative. He denies any abdominal pain. No vomiting. No diarrhea. No genitourinary symptoms. PHYSICAL EXAMINATION: VITAL SIGNS: The patient weighs 60 kg. He is afebrile. Blood pressure 103/51, pulse 75, respiratory rate 20. GENERAL: He is lying very quietly in bed. He does open his eyes and responds to simple questions, but is somewhat lethargic. He is appropriate though in his answers. HEAD AND NECK: Otherwise, unremarkable. Oral cavity is clear. LUNGS AND CHEST: The patient has subcutaneous emphysema along his right lateral chest wall. The surgical wound has healed well. He has crackles on the right side. Exam made more difficult by the subcutaneous emphysema. The left lung exam shows some scattered rhonchi. CARDIAC: Regular rate and rhythm. Normal S1, S2. No murmur, gallop, or rub. ABDOMEN: Nondistended, soft, and nontender. EXTREMITIES: Show no rash or edema. LABORATORY STUDIES: As outlined above. In addition, his platelet count is normal at 344. Creatinine has gone up to 1.59 this morning. His 11/12/2016 creatinine was 0.80. Liver function tests normal. INR 2.6. Albumin 2.3. Radiographic studies as mentioned above. Microbiologic studies as outlined above. The urinalysis is negative. IMPRESSION: The patient presents with shock on admission with mild leukocytosis and a low procalcitonin and now a marked drop in his hemoglobin and marked worsening of a right pleural effusion. This is following a laparoscopic surgery two weeks ago. Certainly, we have to be concerned about the possibility of pneumonia here and sepsis and possible developing complicated effusion. However, I am not convinced of sepsis given the low procalcitonin, the lack of fever, and the review of his chest x-rays. I think we have to have some concern about the possibility of bleeding into his thoracic cavity and the possibility of reactive leukocytosis. In addition, the patient has been on the Septra which I presume was started when the operative cultures came back with Staph aureus and this would make pneumonia less likely. With regard to the rare granulomas seen on the path report and the fungal hyphae, I believe it is unlikely the patient has an invasive fungal pulmonary infection. I do not believe even if he has early Aspergillus infection of his chronic bronchiectasis situation that it is likely to be playing a role in his acute problem right now. Consultation Report [place] [address] [facility] [address] NAME: TANISHA MORRIS : 41 STATUS : ADM IN [facility]#: [id number] AGE: 71 ADM/REG DATE : 11/23/16 MR#: [id number] REPORT SERV DATE: 11/24/16 DICTATED BY: JENNIFFER LAMAR DATE: 11/24/16 REPORT STATUS : Draft TRANSCRIBED BY: MODTrinity DATE: 11/24/16 PLAN: 1. We will continue vancomycin and cefepime. 2. Discussed with Dr. Mars. We will consider thoracentesis and/or CT scan of the chest. 3. GI is also going to evaluate the patient given the anemia and heme-positive stool. /CALOS Jenniffer Lamar M.D. / [id number] CC: MD Nitesh Guerrero M.D.
[2016-11-23 13:28] LABS: BASOPHILS 0.1 %; BASOPHILS ABSOLUTE 0.02 10/3/uL (0.0-0.16); EOSINOPHILS 1.7 %; EOSINOPHILS ABSOLUTE 0.23 10/3/uL (0.0-0.53); ER CBC TAT 0 Hrs 05 Mins; HEMATOCRIT 33.9 % (40.0-51.0); IMMATURE GRANULOCYTES 0.2 %; IMMATURE GRANULOCYTES ABSOLUTE 0.03 10/3/uL (0.0-0.11); LYMPHOCYTES 8.4 %; LYMPHOCYTES ABSOLUTE 1.13 10/3/uL (0.67-4.30); MEAN CORPUS HGB CONC 32.4 g/dL (32.0-36.0); MEAN CORPUSCULAR HEMOGLOB 30.1 pg (26.0-34.0); MEAN CORPUSCULAR VOLUME 92.9 fL (80-100); MEAN PLATELET VOLUME 9.3 fL (9.2-13.0); MONOCYTES ABSOLUTE 0.68 10/3/uL (0.21-1.20); NEUTROPHILS 84.6 %; NEUTROPHILS ABSOLUTE 11.38 10/3/uL (2.02-8.40); PLATELET COUNT 388 10/3/uL (150-400); RBC DISTRIBUTION WIDTH 14.2 % (12.0-16.0); RED CELL COUNT 3.65 10/6/uL (4.7-6.1); WHITE BLOOD CELLS 13.5 10/3/uL (4.5-10.5)
[2016-11-23 13:30] LABS: MANUAL DIFF NO %
[2016-11-23 13:35] LABS: INTERNATIONAL NORMAL RATI 2.4 UNITS (-); PARTIAL THROMBO TIME 37.1 SEC (22.5-37.2)
[2016-11-23 13:40] LABS: PROTIME (NOT ORD) 25.7 SEC (12.0-14.5)
[2016-11-23 13:46] LABS: A/G RATIO 0.8 (0.7-1.9); ALBUMIN 3.1 G/DL (3.5-5.0); CHLORIDE, SERUM 104 MMOL/L (96-112); CO2 (CARBON DIOXIDE) 28 MMOL/L (24-34); GFR AFRICAN AMERICAN 69 ML/MIN (>=60); GFR NON AFRICAN AMERICAN 60 ML/MIN (>=60); GLOBULIN 3.8 G/DL (2.5-4.1); POTASSIUM, SERUM 4.6 MMOL/L (3.5-5.3); SGOT(AST) 13 U/L (5-40); SGPT(ALT) 17 U/L (5-65); SODIUM, SERUM 138 MMOL/L (135-148); TOTAL BILIRUBIN 0.6 MG/DL (0-1.2); TOTAL PROTEIN 6.9 G/DL (6.0-8.5); TROPONIN I <0.02 NG/ML (<0.05)
[2016-11-23 13:49] LABS: ALKALINE PHOSPHATASE 97 U/L (45-117); BUN (BLOOD UREA NITROGEN) 28 MG/DL (6-23); GLUCOSE, SERUM 118 MG/DL (60-99)
[~2016-11-23 13:52] MED LIST changes: +NORCO1 TAB PO
[2016-11-23] MEDS ORDERED: JANTOVEN1 MG PO (14:01)
[2016-11-23] MEDS ORDERED: ASAB PO (14:01)
[2016-11-23] MEDS ORDERED: NORCO1 TAB PO (14:02)
[2016-11-23] MEDS ORDERED: NITROSTAT0.4 MG SL (14:02)
[2016-11-23] MEDS ORDERED: BETAP120 PO (14:03)
[2016-11-23] MEDS ORDERED: BACDS PO (14:04)
[2016-11-23 14:57] LABS: PROCALCITONIN 0.07 ng/mL (<0.5)
[2016-11-23 15:28] LABS: ASCORBIC ACID (UR NOT ORDER) 40 (NEG); BILIRUBIN, URINE NEGATIVE (NEG); KETONE, URINE TRACE MG/DL (NEG); LEUKOCYTE ESTERASE(NOT OR NEG (NEG); NITRITE (URINE) NEG (NEG); WBC (NOT ORDERED) (RFLEX) 3 (0-5)
[2016-11-23 23:01] LABS: HEMATOCRIT 21.4 % (40.0-51.0); HEMOGLOBIN 7.2 g/dL (13.6-17.8)
[2016-11-24 05:50] LABS: INTERNATIONAL NORMAL RATI 2.6 UNITS (-); PROTIME (NOT ORD) 27.8 SEC (12.0-14.5)
[2016-11-24 05:52] LABS: BASOPHILS 0.1 %; BASOPHILS ABSOLUTE 0.02 10/3/uL (0.0-0.16); EOSINOPHILS 0.1 %; EOSINOPHILS ABSOLUTE 0.02 10/3/uL (0.0-0.53); IMMATURE GRANULOCYTES 0.7 %; IMMATURE GRANULOCYTES ABSOLUTE 0.12 10/3/uL (0.0-0.11); LYMPHOCYTES 9.5 %; LYMPHOCYTES ABSOLUTE 1.73 10/3/uL (0.67-4.30); MEAN CORPUS HGB CONC 32.4 g/dL (32.0-36.0); MEAN CORPUSCULAR HEMOGLOB 30.2 pg (26.0-34.0); MEAN CORPUSCULAR VOLUME 93.3 fL (80-100); MEAN PLATELET VOLUME 9.3 fL (9.2-13.0); MONOCYTES 5.5 %; NEUTROPHILS 84.1 %; NEUTROPHILS ABSOLUTE 15.33 10/3/uL (2.02-8.40); PLATELET COUNT 344 10/3/uL (150-400); RBC DISTRIBUTION WIDTH 14.6 % (12.0-16.0); WHITE BLOOD CELLS 18.2 10/3/uL (4.5-10.5)
[2016-11-24 05:53] LABS: HEMOGLOBIN 6.8 g/dL (13.6-17.8); RED CELL COUNT 2.25 10/6/uL (4.7-6.1)
[2016-11-24 05:54] LABS: MANUAL DIFF NO %
[2016-11-24 05:56] LABS: CALCIUM, SERUM 9.6 MG/DL (8.5-10.4); CHLORIDE, SERUM 105 MMOL/L (96-112); CREATININE 1.59 MG/DL (0.70-1.30); GFR AFRICAN AMERICAN 49 ML/MIN (>=60); GFR NON AFRICAN AMERICAN 42 ML/MIN (>=60); PHOSPHORUS, SERUM 4.8 MG/DL (2.5-4.5); POTASSIUM, SERUM 5.5 MMOL/L (3.5-5.3); SODIUM, SERUM 137 MMOL/L (135-148)
[2016-11-24 05:58] LABS: ALBUMIN 2.3 G/DL (3.5-5.0); BUN (BLOOD UREA NITROGEN) 32 MG/DL (6-23); CO2 (CARBON DIOXIDE) 21 MMOL/L (24-34); GLUCOSE, SERUM 164 MG/DL (60-99)
[2016-11-24 08:39] LABS: TOBRAMYCIN, RANDOM 4.6 MCG/ML (5.0-12.0)
[2016-11-24 18:00] LABS: HEMATOCRIT 25.7 % (40.0-51.0); HEMOGLOBIN 8.7 g/dL (13.6-17.8)
[2016-11-24 18:08] LABS: INTERNATIONAL NORMAL RATI 2.5 UNITS (-); PROTIME (NOT ORD) 26.6 SEC (12.0-14.5)
[2016-11-24 18:13] LABS: CALCIUM, SERUM 8.8 MG/DL (8.5-10.4); CHLORIDE, SERUM 105 MMOL/L (96-112); CO2 (CARBON DIOXIDE) 25 MMOL/L (24-34); GFR AFRICAN AMERICAN 25 ML/MIN (>=60); GFR NON AFRICAN AMERICAN 21 ML/MIN (>=60); GLUCOSE, SERUM 169 MG/DL (60-99); POTASSIUM, SERUM 5.4 MMOL/L (3.5-5.3); SODIUM, SERUM 140 MMOL/L (135-148)
[2016-11-24 18:14] LABS: BUN (BLOOD UREA NITROGEN) 45 MG/DL (6-23)
[2016-11-25 04:02] LABS: HEMATOCRIT 23.3 % (40.0-51.0); HEMOGLOBIN 8.2 g/dL (13.6-17.8); MEAN CORPUS HGB CONC 35.2 g/dL (32.0-36.0); MEAN CORPUSCULAR HEMOGLOB 30.5 pg (26.0-34.0); MEAN CORPUSCULAR VOLUME 86.6 fL (80-100); MEAN PLATELET VOLUME 9.8 fL (9.2-13.0); PLATELET COUNT 265 10/3/uL (150-400); RBC DISTRIBUTION WIDTH 15.7 % (12.0-16.0); RED CELL COUNT 2.69 10/6/uL (4.7-6.1); WHITE BLOOD CELLS 25.7 10/3/uL (4.5-10.5)
[2016-11-25 04:03] LABS: MANUAL DIFF YES %
[2016-11-25 04:11] LABS: INTERNATIONAL NORMAL RATI 1.6 UNITS (-)
[2016-11-25 04:12] LABS: PARTIAL THROMBO TIME 33.4 SEC (22.5-37.2)
[2016-11-25 04:14] LABS: ALBUMIN 2.4 G/DL (3.5-5.0); CALCIUM, SERUM 8.5 MG/DL (8.5-10.4); CHLORIDE, SERUM 107 MMOL/L (96-112); CO2 (CARBON DIOXIDE) 23 MMOL/L (24-34); GLUCOSE, SERUM 142 MG/DL (60-99); PHOSPHORUS, SERUM 5.6 MG/DL (2.5-4.5); POTASSIUM, SERUM 5.7 MMOL/L (3.5-5.3); PROTIME (NOT ORD) 18.7 SEC (12.0-14.5); SGOT(AST) 852 U/L (5-40); SGPT(ALT) 786 U/L (5-65); SODIUM, SERUM 139 MMOL/L (135-148); TOTAL BILIRUBIN 0.7 MG/DL (0-1.2)
[2016-11-25 04:25] LABS: BAND NEUTROPHILS 1 %; LYMPHOCYTES 7 %; MONOCYTES 3 %; MONOCYTES ABSOLUTE (CALC) 0.77 10/3/uL (0.21-1.20); NEUTROPHILS ABSOLUTE (CALC) 23.13 10/3/uL (2.02-8.40); PLATELET ESTIMATE ADQ (ADEQUATE); RBC MORPHOLOGY NORM (NORMAL); SEGMENTED NEUTROPHIL (0) 89 %; TOTAL NUCLEATED CELLS 100
[2016-11-25 04:26] LABS: A/G RATIO 0.9 (0.7-1.9); ALKALINE PHOSPHATASE 72 U/L (45-117); BUN (BLOOD UREA NITROGEN) 58 MG/DL (6-23); CREATININE 3.35 MG/DL (0.70-1.30); GFR AFRICAN AMERICAN 20 ML/MIN (>=60); GFR NON AFRICAN AMERICAN 17 ML/MIN (>=60); GLOBULIN 2.8 G/DL (2.5-4.1); TOTAL PROTEIN 5.2 G/DL (6.0-8.5)
[2016-11-25 10:17] LABS: BE (BASE EXCESS) -11.1 MEQ/L (0 +/- 2.5); CARBOXYHEMOGLOBIN 0.2 % (0-3); DEVICE NC; HCO3 (ACTUAL BICARBONATE) 16.2 MEQ/L (23-27); HEMOBLOGIN CONTENT 5.9 G/DL (14-18); INSTRUMENT SERIAL # 35151; METHEMOGLOBIN 1.1 % (0-3); O2 CONTENT 8.4 VOL% (18-24); OPERATOR ID 32199; PCO2 (CO2 TENSION) 44 MMHG (35-45); PO2 (O2 TENSION) 140 MMHG (79-93); SAMPLE Arterial; pH 7.18 (7.37-7.43)
[2016-11-25 10:31] LABS: BODY FLUID RBC (NOT ORD) 595312 /MM3
[2016-11-25 10:32] LABS: GLUCOSE BODY FL (NOT ORD) 85 MG/DL; LDH BODY FLUID (NOT ORD) 173 U/L
[2016-11-25 10:56] LABS: BD FL LYMPH (NOT ORD) 1 %; BD FL SOURCE (NOT ORD) RT PLEURAL; BF BASO (NOT OF) 0 %; BF LARGE MONONUCLEAR 34 %; BODY FLUID EOS (NOT ORD) 0 %; BODY FLUID SEG (NOT ORD) 65 %
[2016-11-25 11:09] LABS: BF TOTAL CELL CT (NOT ORD 3981 /MM3
[2016-11-25 15:41] LABS: CREATININE (RANDOM URINE) 77.4 MG/DL; CREATININE, URINE 77.4 MG/DL; MICROALBUMIN, RANDOM URINE 3.5 MG/DL
[2016-11-25 17:55] LABS: ALBUMIN 2.8 G/DL (3.5-5.0); BUN (BLOOD UREA NITROGEN) 64 MG/DL (6-23); CALCIUM, SERUM 8.9 MG/DL (8.5-10.4); CHLORIDE, SERUM 107 MMOL/L (96-112); CO2 (CARBON DIOXIDE) 23 MMOL/L (24-34); CREATININE 3.35 MG/DL (0.70-1.30); GFR AFRICAN AMERICAN 20 ML/MIN (>=60); GFR NON AFRICAN AMERICAN 17 ML/MIN (>=60); GLUCOSE, SERUM 102 MG/DL (60-99); PHOSPHORUS, SERUM 4.5 MG/DL (2.5-4.5); POTASSIUM, SERUM 5.1 MMOL/L (3.5-5.3); SODIUM, SERUM 140 MMOL/L (135-148)
[2016-11-25 22:14] LABS: INSTRUMENT SERIAL # 35151; OPERATOR ID 13861; SAMPLE PLR; pH 7.06 (7.37-7.43)
[2016-11-26 03:30] LABS: HEMATOCRIT 23.3 % (40.0-51.0); MEAN CORPUS HGB CONC 34.3 g/dL (32.0-36.0); MEAN CORPUSCULAR HEMOGLOB 30.3 pg (26.0-34.0); MEAN CORPUSCULAR VOLUME 88.3 fL (80-100); MEAN PLATELET VOLUME 9.5 fL (9.2-13.0); PLATELET COUNT 249 10/3/uL (150-400); RBC DISTRIBUTION WIDTH 15.5 % (12.0-16.0); RED CELL COUNT 2.64 10/6/uL (4.7-6.1)
[2016-11-26 03:31] LABS: WHITE BLOOD CELLS 28.2 10/3/uL (4.5-10.5)
[2016-11-26 03:32] LABS: MANUAL DIFF YES %
[2016-11-26 03:49] LABS: CALCIUM, SERUM 9.4 MG/DL (8.5-10.4); CHLORIDE, SERUM 102 MMOL/L (96-112); CREATININE 3.45 MG/DL (0.70-1.30); GFR AFRICAN AMERICAN 19 ML/MIN (>=60); GFR NON AFRICAN AMERICAN 17 ML/MIN (>=60); GLUCOSE, SERUM 99 MG/DL (60-99); PHOSPHORUS, SERUM 4.4 MG/DL (2.5-4.5); POTASSIUM, SERUM 4.2 MMOL/L (3.5-5.3); SODIUM, SERUM 141 MMOL/L (135-148)
[2016-11-26 03:50] LABS: BUN (BLOOD UREA NITROGEN) 68 MG/DL (6-23); CO2 (CARBON DIOXIDE) 30 MMOL/L (24-34)
[2016-11-26 03:57] LABS: EOSINOPHILS 1 %; EOSINOPHILS ABSOLUTE (CALC) 0.28 10/3/uL (0.0-0.53); LYMPHOCYTES 2 %; LYMPHOCYTES ABSOLUTE (CALC) 0.56 10/3/uL (0.67-4.30); MONOCYTES 2 %; MONOCYTES ABSOLUTE (CALC) 0.56 10/3/uL (0.21-1.20); NEUTROPHILS ABSOLUTE (CALC) 26.79 10/3/uL (2.02-8.40); SEGMENTED NEUTROPHIL (0) 95 %; TOTAL NUCLEATED CELLS 100
[2016-11-26 03:58] LABS: PLATELET ESTIMATE ADQ (ADEQUATE); RBC MORPHOLOGY NORM (NORMAL)
[2016-11-26 11:19] LABS: ALBUMIN 3.1 G/DL (3.5-5.0); DIRECT BILIRUBIN 0.2 MG/DL (0.0-0.4); INDIRECT BILIRUBIN(NOT ORDER) 0.4 MG/DL (0.1-0.9); TOTAL BILIRUBIN 0.6 MG/DL (0-1.2); TOTAL PROTEIN 6.2 G/DL (6.0-8.5)
[2016-11-27 03:47] LABS: BASOPHILS 0 %; BASOPHILS ABSOLUTE 0.01 10/3/uL (0.0-0.16); EOSINOPHILS 0.4 %; EOSINOPHILS ABSOLUTE 0.09 10/3/uL (0.0-0.53); HEMATOCRIT 22.7 % (40.0-51.0); HEMOGLOBIN 7.6 g/dL (13.6-17.8); IMMATURE GRANULOCYTES 0.3 %; IMMATURE GRANULOCYTES ABSOLUTE 0.07 10/3/uL (0.0-0.11); LYMPHOCYTES 4.1 %; LYMPHOCYTES ABSOLUTE 0.91 10/3/uL (0.67-4.30); MEAN CORPUS HGB CONC 33.5 g/dL (32.0-36.0); MEAN CORPUSCULAR HEMOGLOB 30.4 pg (26.0-34.0); MEAN CORPUSCULAR VOLUME 90.8 fL (80-100); MEAN PLATELET VOLUME 9.5 fL (9.2-13.0); MONOCYTES 5.6 %; MONOCYTES ABSOLUTE 1.25 10/3/uL (0.21-1.20); NEUTROPHILS 89.6 %; NEUTROPHILS ABSOLUTE 19.81 10/3/uL (2.02-8.40); PLATELET COUNT 250 10/3/uL (150-400); RBC DISTRIBUTION WIDTH 15.1 % (12.0-16.0); WHITE BLOOD CELLS 22.1 10/3/uL (4.5-10.5)
[2016-11-27 03:50] LABS: MANUAL DIFF NO %
[2016-11-27 04:05] LABS: CALCIUM, SERUM 9.5 MG/DL (8.5-10.4); CHLORIDE, SERUM 100 MMOL/L (96-112); CO2 (CARBON DIOXIDE) 33 MMOL/L (24-34); CREATININE 3.66 MG/DL (0.70-1.30); GFR AFRICAN AMERICAN 18 ML/MIN (>=60); GFR NON AFRICAN AMERICAN 15 ML/MIN (>=60); GLUCOSE, SERUM 99 MG/DL (60-99); PHOSPHORUS, SERUM 4.9 MG/DL (2.5-4.5); POTASSIUM, SERUM 3.5 MMOL/L (3.5-5.3); SODIUM, SERUM 141 MMOL/L (135-148); VANCOMYCIN TROUGH 14.6 MCG/ML (10.0-20.0)
[2016-11-27 04:07] LABS: BUN (BLOOD UREA NITROGEN) 76 MG/DL (6-23)
[2016-11-28 04:32] LABS: ALKALINE PHOSPHATASE 73 U/L (45-117); DIRECT BILIRUBIN 0.2 MG/DL (0.0-0.4); INDIRECT BILIRUBIN(NOT ORDER) 0.5 MG/DL (0.1-0.9); SGOT(AST) 66 U/L (5-40); SGPT(ALT) 303 U/L (5-65); TOTAL BILIRUBIN 0.7 MG/DL (0-1.2); TOTAL PROTEIN 6.4 G/DL (6.0-8.5)
[2016-11-28 05:31] LABS: BUN (BLOOD UREA NITROGEN) 78 MG/DL (6-23); CALCIUM, SERUM 9.8 MG/DL (8.5-10.4); CHLORIDE, SERUM 103 MMOL/L (96-112); CO2 (CARBON DIOXIDE) 35 MMOL/L (24-34); GFR AFRICAN AMERICAN 25 ML/MIN (>=60); GFR NON AFRICAN AMERICAN 22 ML/MIN (>=60); GLUCOSE, SERUM 103 MG/DL (60-99); PHOSPHORUS, SERUM 4.1 MG/DL (2.5-4.5); POTASSIUM, SERUM 3.6 MMOL/L (3.5-5.3); SODIUM, SERUM 145 MMOL/L (135-148)
[2016-11-28 05:32] LABS: CREATININE 2.79 MG/DL (0.70-1.30)
[2016-11-28 08:31] LABS: BASOPHILS 0.2 %; BASOPHILS ABSOLUTE 0.03 10/3/uL (0.0-0.16); EOSINOPHILS 1.2 %; EOSINOPHILS ABSOLUTE 0.23 10/3/uL (0.0-0.53); HEMATOCRIT 24.7 % (40.0-51.0); HEMOGLOBIN 7.7 g/dL (13.6-17.8); IMMATURE GRANULOCYTES 0.4 %; IMMATURE GRANULOCYTES ABSOLUTE 0.07 10/3/uL (0.0-0.11); LYMPHOCYTES 4.1 %; LYMPHOCYTES ABSOLUTE 0.78 10/3/uL (0.67-4.30); MEAN CORPUSCULAR HEMOGLOB 29.6 pg (26.0-34.0); MEAN PLATELET VOLUME 9.4 fL (9.2-13.0); MONOCYTES 7.5 %; MONOCYTES ABSOLUTE 1.41 10/3/uL (0.21-1.20); NEUTROPHILS 86.6 %; NEUTROPHILS ABSOLUTE 16.39 10/3/uL (2.02-8.40); PLATELET COUNT 289 10/3/uL (150-400); RBC DISTRIBUTION WIDTH 15.5 % (12.0-16.0); WHITE BLOOD CELLS 18.9 10/3/uL (4.5-10.5)
[2016-11-28 08:32] LABS: MANUAL DIFF NO %; MEAN CORPUS HGB CONC 31.2 g/dL (32.0-36.0)
[2016-11-29 05:27] LABS: CALCIUM, SERUM 9.7 MG/DL (8.5-10.4); CHLORIDE, SERUM 109 MMOL/L (96-112); CO2 (CARBON DIOXIDE) 33 MMOL/L (24-34); GLUCOSE, SERUM 107 MG/DL (60-99); POTASSIUM, SERUM 3.8 MMOL/L (3.5-5.3); SODIUM, SERUM 149 MMOL/L (135-148); VANCOMYCIN TROUGH 10.5 MCG/ML (10.0-20.0)
[2016-11-29 05:29] LABS: BUN (BLOOD UREA NITROGEN) 60 MG/DL (6-23); CREATININE 1.71 MG/DL (0.70-1.30); GFR AFRICAN AMERICAN 45 ML/MIN (>=60); GFR NON AFRICAN AMERICAN 39 ML/MIN (>=60); PHOSPHORUS, SERUM 2.3 MG/DL (2.5-4.5)
[2016-11-30 04:16] LABS: BASOPHILS 0.2 %; BASOPHILS ABSOLUTE 0.02 10/3/uL (0.0-0.16); EOSINOPHILS ABSOLUTE 0.69 10/3/uL (0.0-0.53); HEMATOCRIT 24.3 % (40.0-51.0); HEMOGLOBIN 7.6 g/dL (13.6-17.8); IMMATURE GRANULOCYTES 0.4 %; IMMATURE GRANULOCYTES ABSOLUTE 0.05 10/3/uL (0.0-0.11); LYMPHOCYTES 9.6 %; MEAN CORPUS HGB CONC 31.3 g/dL (32.0-36.0); MEAN CORPUSCULAR HEMOGLOB 29.8 pg (26.0-34.0); MEAN CORPUSCULAR VOLUME 95.3 fL (80-100); MEAN PLATELET VOLUME 9.5 fL (9.2-13.0); MONOCYTES 8.9 %; MONOCYTES ABSOLUTE 1.02 10/3/uL (0.21-1.20); NEUTROPHILS 74.9 %; NEUTROPHILS ABSOLUTE 8.54 10/3/uL (2.02-8.40); PLATELET COUNT 277 10/3/uL (150-400); RBC DISTRIBUTION WIDTH 15.7 % (12.0-16.0); RED CELL COUNT 2.55 10/6/uL (4.7-6.1); WHITE BLOOD CELLS 11.4 10/3/uL (4.5-10.5)
[2016-11-30 04:20] LABS: MANUAL DIFF NO %
[2016-11-30 04:30] LABS: CALCIUM, SERUM 9.5 MG/DL (8.5-10.4); CHLORIDE, SERUM 108 MMOL/L (96-112); CO2 (CARBON DIOXIDE) 32 MMOL/L (24-34); GFR AFRICAN AMERICAN 53 ML/MIN (>=60); GFR NON AFRICAN AMERICAN 46 ML/MIN (>=60); SODIUM, SERUM 148 MMOL/L (135-148)
[2016-11-30 04:32] LABS: BUN (BLOOD UREA NITROGEN) 44 MG/DL (6-23); GLUCOSE, SERUM 133 MG/DL (60-99)
[2016-12-02 05:33] LABS: BASOPHILS 0.2 %; BASOPHILS ABSOLUTE 0.03 10/3/uL (0.0-0.16); EOSINOPHILS 13.3 %; EOSINOPHILS ABSOLUTE 1.62 10/3/uL (0.0-0.53); HEMATOCRIT 26.7 % (40.0-51.0); HEMOGLOBIN 8.8 g/dL (13.6-17.8); IMMATURE GRANULOCYTES 0.4 %; IMMATURE GRANULOCYTES ABSOLUTE 0.05 10/3/uL (0.0-0.11); LYMPHOCYTES 10.4 %; LYMPHOCYTES ABSOLUTE 1.27 10/3/uL (0.67-4.30); MEAN CORPUSCULAR HEMOGLOB 30.1 pg (26.0-34.0); MEAN PLATELET VOLUME 9.6 fL (9.2-13.0); MONOCYTES 7.5 %; MONOCYTES ABSOLUTE 0.91 10/3/uL (0.21-1.20); NEUTROPHILS 68.2 %; NEUTROPHILS ABSOLUTE 8.31 10/3/uL (2.02-8.40); PLATELET COUNT 236 10/3/uL (150-400); RBC DISTRIBUTION WIDTH 15.9 % (12.0-16.0); RED CELL COUNT 2.92 10/6/uL (4.7-6.1); WHITE BLOOD CELLS 12.2 10/3/uL (4.5-10.5)
[2016-12-02 05:37] LABS: MANUAL DIFF NO %; MEAN CORPUSCULAR VOLUME 91.4 fL (80-100)
[2016-12-02 05:39] LABS: CALCIUM, SERUM 9.6 MG/DL (8.5-10.4); CHLORIDE, SERUM 105 MMOL/L (96-112); CO2 (CARBON DIOXIDE) 30 MMOL/L (24-34); CREATININE 1.38 MG/DL (0.70-1.30); GFR AFRICAN AMERICAN 58 ML/MIN (>=60); GFR NON AFRICAN AMERICAN 50 ML/MIN (>=60); GLUCOSE, SERUM 143 MG/DL (60-99); POTASSIUM, SERUM 4.6 MMOL/L (3.5-5.3)
[2016-12-02 05:53] LABS: BUN (BLOOD UREA NITROGEN) 28 MG/DL (6-23); SODIUM, SERUM 139 MMOL/L (135-148)
[2016-12-02 17:35] LABS: PARTIAL THROMBO TIME 29.8 SEC (22.5-37.2)
[2016-12-03 06:54] LABS: BUN (BLOOD UREA NITROGEN) 25 MG/DL (6-23); CALCIUM, SERUM 9.6 MG/DL (8.5-10.4); CHLORIDE, SERUM 103 MMOL/L (96-112); CO2 (CARBON DIOXIDE) 30 MMOL/L (24-34); CREATININE 1.28 MG/DL (0.70-1.30); GFR AFRICAN AMERICAN 64 ML/MIN (>=60); GFR NON AFRICAN AMERICAN 55 ML/MIN (>=60); GLUCOSE, SERUM 115 MG/DL (60-99); POTASSIUM, SERUM 4.7 MMOL/L (3.5-5.3); SODIUM, SERUM 138 MMOL/L (135-148)
[2016-12-04 06:34] LABS: BASOPHILS 0.2 %; BASOPHILS ABSOLUTE 0.02 10/3/uL (0.0-0.16); EOSINOPHILS 8.5 %; EOSINOPHILS ABSOLUTE 0.88 10/3/uL (0.0-0.53); HEMATOCRIT 26.2 % (40.0-51.0); HEMOGLOBIN 8.5 g/dL (13.6-17.8); IMMATURE GRANULOCYTES 0.4 %; IMMATURE GRANULOCYTES ABSOLUTE 0.04 10/3/uL (0.0-0.11); LYMPHOCYTES ABSOLUTE 1.13 10/3/uL (0.67-4.30); MEAN CORPUS HGB CONC 32.4 g/dL (32.0-36.0); MEAN CORPUSCULAR HEMOGLOB 29.8 pg (26.0-34.0); MEAN CORPUSCULAR VOLUME 91.9 fL (80-100); MEAN PLATELET VOLUME 9.7 fL (9.2-13.0); MONOCYTES 8.4 %; MONOCYTES ABSOLUTE 0.87 10/3/uL (0.21-1.20); NEUTROPHILS 71.5 %; NEUTROPHILS ABSOLUTE 7.37 10/3/uL (2.02-8.40); PLATELET COUNT 252 10/3/uL (150-400); RBC DISTRIBUTION WIDTH 15.6 % (12.0-16.0); RED CELL COUNT 2.85 10/6/uL (4.7-6.1); WHITE BLOOD CELLS 10.3 10/3/uL (4.5-10.5)
[2016-12-04 06:36] LABS: MANUAL DIFF NO %
[2016-12-04 06:40] LABS: INTERNATIONAL NORMAL RATI 1.1 UNITS (-)
[2016-12-04 06:41] LABS: PARTIAL THROMBO TIME 73.3 SEC (22.5-37.2)
[2016-12-05 09:44] LABS: INTERNATIONAL NORMAL RATI 2.3 UNITS (-); PARTIAL THROMBO TIME 71.4 SEC (22.5-37.2)
[2016-12-05 09:46] LABS: PROTIME (NOT ORD) 25.1 SEC (12.0-14.5)
[2016-12-05 09:49] LABS: BUN (BLOOD UREA NITROGEN) 22 MG/DL (6-23); CALCIUM, SERUM 9.7 MG/DL (8.5-10.4); CHLORIDE, SERUM 104 MMOL/L (96-112); CO2 (CARBON DIOXIDE) 32 MMOL/L (24-34); CREATININE 1.18 MG/DL (0.70-1.30); GFR AFRICAN AMERICAN 71 ML/MIN (>=60); GFR NON AFRICAN AMERICAN 61 ML/MIN (>=60); GLUCOSE, SERUM 113 MG/DL (60-99); POTASSIUM, SERUM 4.2 MMOL/L (3.5-5.3); SODIUM, SERUM 140 MMOL/L (135-148)
[2016-12-05 10:53] LABS: BASOPHILS 0.5 %; BASOPHILS ABSOLUTE 0.06 10/3/uL (0.0-0.16); EOSINOPHILS 6.7 %; EOSINOPHILS ABSOLUTE 0.86 10/3/uL (0.0-0.53); HEMATOCRIT 27.3 % (40.0-51.0); HEMOGLOBIN 8.7 g/dL (13.6-17.8); IMMATURE GRANULOCYTES 0.6 %; IMMATURE GRANULOCYTES ABSOLUTE 0.08 10/3/uL (0.0-0.11); LYMPHOCYTES 8.3 %; LYMPHOCYTES ABSOLUTE 1.07 10/3/uL (0.67-4.30); MANUAL DIFF NO %; MEAN CORPUS HGB CONC 31.9 g/dL (32.0-36.0); MEAN CORPUSCULAR HEMOGLOB 29.1 pg (26.0-34.0); MEAN CORPUSCULAR VOLUME 91.3 fL (80-100); MEAN PLATELET VOLUME 9.9 fL (9.2-13.0); MONOCYTES 7.4 %; MONOCYTES ABSOLUTE 0.96 10/3/uL (0.21-1.20); NEUTROPHILS 76.5 %; NEUTROPHILS ABSOLUTE 9.89 10/3/uL (2.02-8.40); PLATELET COUNT 240 10/3/uL (150-400); RBC DISTRIBUTION WIDTH 15.3 % (12.0-16.0); RED CELL COUNT 2.99 10/6/uL (4.7-6.1); WHITE BLOOD CELLS 12.9 10/3/uL (4.5-10.5)
[2016-12-05 14:22] LABS: PROTEIN C ACTIVITY 134 % (70-145); PROTEIN S ACTIVITY 51 % (69-161)
[2016-12-06 07:10] LABS: BASOPHILS 0.2 %; BASOPHILS ABSOLUTE 0.02 10/3/uL (0.0-0.16); EOSINOPHILS 9.7 %; EOSINOPHILS ABSOLUTE 0.88 10/3/uL (0.0-0.53); HEMATOCRIT 26.9 % (40.0-51.0); HEMOGLOBIN 8.5 g/dL (13.6-17.8); IMMATURE GRANULOCYTES 0.4 %; IMMATURE GRANULOCYTES ABSOLUTE 0.04 10/3/uL (0.0-0.11); LYMPHOCYTES 11.3 %; LYMPHOCYTES ABSOLUTE 1.02 10/3/uL (0.67-4.30); MEAN CORPUS HGB CONC 31.6 g/dL (32.0-36.0); MEAN CORPUSCULAR HEMOGLOB 29.6 pg (26.0-34.0); MEAN CORPUSCULAR VOLUME 93.7 fL (80-100); MEAN PLATELET VOLUME 10.1 fL (9.2-13.0); MONOCYTES 8.6 %; MONOCYTES ABSOLUTE 0.78 10/3/uL (0.21-1.20); NEUTROPHILS 69.8 %; NEUTROPHILS ABSOLUTE 6.29 10/3/uL (2.02-8.40); PLATELET COUNT 269 10/3/uL (150-400); RBC DISTRIBUTION WIDTH 15.3 % (12.0-16.0); RED CELL COUNT 2.87 10/6/uL (4.7-6.1)
[2016-12-06 07:13] LABS: MANUAL DIFF NO %
[2016-12-06 07:14] LABS: INTERNATIONAL NORMAL RATI 3.1 UNITS (-)
[2016-12-06 07:15] LABS: PROTIME (NOT ORD) 31.8 SEC (12.0-14.5)
[2016-12-06 07:23] LABS: BUN (BLOOD UREA NITROGEN) 22 MG/DL (6-23); CALCIUM, SERUM 9.5 MG/DL (8.5-10.4); CHLORIDE, SERUM 104 MMOL/L (96-112); CO2 (CARBON DIOXIDE) 30 MMOL/L (24-34); CREATININE 1.17 MG/DL (0.70-1.30); GFR AFRICAN AMERICAN 71 ML/MIN (>=60); GFR NON AFRICAN AMERICAN 61 ML/MIN (>=60); GLUCOSE, SERUM 130 MG/DL (60-99); POTASSIUM, SERUM 3.8 MMOL/L (3.5-5.3); SODIUM, SERUM 140 MMOL/L (135-148)
== END 2016-12-06 16:36 | DRG 919 ==
LOC: ER 13:52 → 1SO 15:40 → 2SO 15:46 → ER/OF 17:30 → CCU 17:51 → 7NO 20:34 → CCU 20:52 → 5NO 11-29 19:28
PROVIDERS: Emergency Medicine; Internal Medicine; Internal Medicine Critical Care Medicine; Internal Medicine Infectious Disease; Internal Medicine Nephrology
PROC: 02HV33Z Insertion of Infusion Device into Superior Vena Cava, Percutaneous Approach (ICD-10-PCS; 2016-11-24)
PROC: 30233N1 Transfusion of Nonautologous Red Blood Cells into Peripheral Vein, Percutaneous Approach (ICD-10-PCS; 2016-11-24)
PROC: 0W9930Z Drainage of Right Pleural Cavity with Drainage Device, Percutaneous Approach (ICD-10-PCS; principal; 2016-11-25)
DX: J95.830 Postprocedural hemorrhage of a respiratory system organ or structure following a respiratory system procedure (principal); A41.9 Sepsis, unspecified organism; N17.0 Acute kidney failure with tubular necrosis; R57.1 Hypovolemic shock; J86.9 Pyothorax without fistula; J90 Pleural effusion, not elsewhere classified; J94.2 Hemothorax; J18.9 Pneumonia, unspecified organism; D68.69 Other thrombophilia; D62 Acute posthemorrhagic anemia; N17.9 Acute kidney failure, unspecified; I82.622 Acute embolism and thrombosis of deep veins of left upper extremity; E87.5 Hyperkalemia; I48.0 Paroxysmal atrial fibrillation; E78.5 Hyperlipidemia, unspecified; B95.61 Methicillin susceptible Staphylococcus aureus infection as the cause of diseases classified elsewhere; I25.10 Atherosclerotic heart disease of native coronary artery without angina pectoris; Z95.5 Presence of coronary angioplasty implant and graft; Z87.442 Personal history of urinary calculi; Z79.01 Long term (current) use of anticoagulants; J47.9 Bronchiectasis, uncomplicated
CPT/HCPCS: 36415; 36569; 71010; 71020; 71250; 76775; 80048; 80053; 80069; 80076; 80200; 80202; 81001; 81241; 82043; 82330; 82533; 82570; 82805; 82945; 83605; 83615; 83690; 83735; 83986; 84100; 84145; 84157; 84300; 84484; 85014; 85018; 85025; 85303; 85306; 85610; 85730; 86850; 86900; 86901; 86920; 87015; 87040; 87070; 87075; 87102; 87116; 87205; 87641; 89051; 93005; 93971; 94640; 96374; 96375; 97110-GP; 97116-GP; 97162-GP; 97530-GP; 99285; A9270-GY; C1751; C1894; C9113; G8978-CK-GP; G8979-CJ-GP; J0456; J0690; J0692; J1170; J1205; J1940; J2185; J2405; J3260; J3370; J3430; P9016; P9047